=== PATIENT | male | born 1955 | race Caucasian/White ===

== ENCOUNTER 2016-11-05 15:33 | Emergency (ER) | payer BC ==
[~2016-11-05] VITALS: Ht 172.7 cm; Wt 81.8 kg
[2016-11-05] MEDS ORDERED: ADV250INH (15:49)
[2016-11-05] MEDS ORDERED: ATOR1TAB19 (15:49)
[2016-11-05] MEDS ORDERED: ASPI81TA85 PO (15:49)
[2016-11-05] MEDS ORDERED: VITA100067 PO (15:49)
[2016-11-05] MEDS ORDERED: IBUP-1114 PO (15:49)
[2016-11-05] MEDS ORDERED: LOSA25TA8 (15:49)
[2016-11-05] MEDS ORDERED: METO-346 (15:49)
[2016-11-05] MEDS ORDERED: NORCO, ANEXSIA 5/325MG TABLET (HYDROcodone/ACETAMINOPHEN) PO ONE (16:30)
[2016-11-05] MEDS ORDERED: CYCLOBENZAPRINE 10 MG TAB PO ONE (16:30)
[2016-11-05 17:37] VITALS: BP 116/65
[2016-11-05] MEDS ORDERED: NORCOTAB PO (17:38)
[2016-11-05] MEDS ORDERED: CYCL10TA PO (17:38)
[2016-11-05] MEDS ORDERED: METOCLOPRAMIDE INJ 10MG/2ML VIAL (J2765) IV ONE (17:45)
== END 2016-11-05 17:49 | disposition home or self-care (01) ==
LOC: M ED 15:33
DX: S33.5XXA Sprain of ligaments of lumbar spine, initial encounter (principal); I10 Essential (primary) hypertension; G89.29 Other chronic pain; M54.5 Low back pain; X58.XXXA Exposure to other specified factors, initial encounter; Y92.9 Unspecified place or not applicable; Y99.9 Unspecified external cause status; Y93.9 Activity, unspecified; Z87.891 Personal history of nicotine dependence; Z79.82 Long term (current) use of aspirin; Z79.899 Other long term (current) drug therapy

== ENCOUNTER → 2017-01-06 | Outpatient (CLI) | payer BC ==
[~2017-01-06] MED LIST: ADV250INH; ASPI81TA85 PO; ATOR1TAB19; CYCL10TA PO; IBUP-1114 PO; LOSA25TA8; METO-346; NORCOTAB PO; VITA100067 PO
[2017-01-06 08:40] LABS: ALBUMIN 3.9 GM/DL (3.2-5.2); ALKALINE PHOSPHATASE 44 U/L (45-117); ALT/SGPT 50 U/L (12-78); ANION GAP 7 MEQ/L (8-16); AST/SGOT 23 U/L (15-37); BILIRUBIN,TOTAL 0.7 MG/DL (0.2-1.0); BLOOD UREA NITROGEN 23 MG/DL (7-18); CALCIUM LEVEL 8.7 MG/DL (8.8-10.2); CARBON DIOXIDE LEVEL 28 MEQ/L (21-32); CHLORIDE LEVEL 110 MEQ/L (98-107); CHOLESTEROL LEVEL 145 MG/DL (<200); CREATININE FOR GFR 0.95 MG/DL (0.70-1.30); GLOMERULAR FILTRATION RATE > 60.0 (>49); GLUCOSE, FASTING 95 MG/DL (80-110); POTASSIUM SERUM 4.5 MEQ/L (3.5-5.1); SODIUM LEVEL 145 MEQ/L (136-145); TOTAL PROTEIN 6.9 GM/DL (6.4-8.2); TRIGLYCERIDES LEVEL 105 MG/DL (<150)
== END ==
LOC: M LAB 07:08
PROVIDERS: ATTEND Physician Assistant
DX: I10 Essential (primary) hypertension (principal)

== ENCOUNTER → 2017-07-10 | Outpatient (CLI) | payer BC ==
[2017-07-10 11:29] LABS: ANION GAP 6 MEQ/L (8-16); BLOOD UREA NITROGEN 28 MG/DL (7-18); CALCIUM LEVEL 9.2 MG/DL (8.8-10.2); CARBON DIOXIDE LEVEL 29 MEQ/L (21-32); CHLORIDE LEVEL 108 MEQ/L (98-107); CREATININE FOR GFR 0.93 MG/DL (0.70-1.30); GLOMERULAR FILTRATION RATE > 60.0 (>49); GLUCOSE, FASTING 102 MG/DL (70-100); POTASSIUM SERUM 4.1 MEQ/L (3.5-5.1); SODIUM LEVEL 143 MEQ/L (136-145)
== END ==
LOC: M LAB 10:54
DX: I10 Essential (primary) hypertension (principal)

== ENCOUNTER → 2018-07-09 | Outpatient (CLI) | payer BC ==
[~2018-07-09] MED LIST changes: +LOSA25TA14; -LOSA25TA8
[2018-07-09 11:59] LABS: HEMOGLOBIN A1c 5.8 %
[2018-07-09 12:18] LABS: BLOOD UREA NITROGEN 14 MG/DL (7-18); CARBON DIOXIDE LEVEL 27 MEQ/L (21-32); CHLORIDE LEVEL 107 MEQ/L (98-107); CHOLESTEROL LEVEL 144 MG/DL (<200); CHOLESTEROL RISK RATIO 2.322 (<5); GLOMERULAR FILTRATION RATE > 60.0 (>49); GLUCOSE, FASTING 87 MG/DL (70-100); HDL CHOLESTEROL 62 MG/DL (>40); LDL CHOLESTEROL 54 MG/DL (<100); NON-HDL-C 82 MG/DL; POTASSIUM SERUM 4.5 MEQ/L (3.5-5.1); SODIUM LEVEL 140 MEQ/L (136-145); TRIGLYCERIDES LEVEL 139 MG/DL (<150)
== END ==
LOC: M LAB 11:09
PROVIDERS: ATTEND Family Medicine
DX: Z13.1 Encounter for screening for diabetes mellitus (principal); I10 Essential (primary) hypertension

== ENCOUNTER → 2018-08-15 | Outpatient (CLI) | payer BC ==
[~2018-08-15] MED LIST changes: +HYDR-3715 PO; -NORCOTAB PO
== END ==
LOC: M LAB 16:41
PROVIDERS: ATTEND Family Medicine
DX: Z12.5 Encounter for screening for malignant neoplasm of prostate (principal)
CPT/HCPCS: 36415; G0103

== ENCOUNTER → 2019-07-24 | Outpatient (REF) | payer BC ==
[2019-07-24 11:03] LABS: ALBUMIN 4.1 GM/DL (3.2-5.2); ALT/SGPT 45 U/L (12-78); BILIRUBIN,TOTAL 0.4 MG/DL (0.2-1.0); BLOOD UREA NITROGEN 24 MG/DL (7-18); CALCIUM LEVEL 9.1 MG/DL (8.8-10.2); CARBON DIOXIDE LEVEL 24 MEQ/L (21-32); CHLORIDE LEVEL 111 MEQ/L (98-107); CHOLESTEROL LEVEL 137 MG/DL (<200); CHOLESTEROL RISK RATIO 2.362 (<5); CREATININE FOR GFR 1.11 MG/DL (0.70-1.30); GLOMERULAR FILTRATION RATE > 60.0 (>49); GLUCOSE, FASTING 95 MG/DL (70-100); HDL CHOLESTEROL 58 MG/DL (>40); LDL CHOLESTEROL 65 MG/DL (<100); NON-HDL-C 79 MG/DL; POTASSIUM SERUM 4.1 MEQ/L (3.5-5.1); PROSTATIC SPECIFIC AG MONITOR 2.63 NG/ML (< 4.00); SODIUM LEVEL 143 MEQ/L (136-145); TOTAL PROTEIN 7.1 GM/DL (6.4-8.2); TRIGLYCERIDES LEVEL 71 MG/DL (<150)
[2019-07-24 11:06] LABS: HEMOGLOBIN A1c 6.1 %
== END ==
LOC: M SFHCPLAZ 08:07
PROVIDERS: ATTEND Physician Assistant
DX: I10 Essential (primary) hypertension (principal); Z12.5 Encounter for screening for malignant neoplasm of prostate; R73.03 Prediabetes; Z13.29 Encounter for screening for other suspected endocrine disorder; E78.5 Hyperlipidemia, unspecified

== ENCOUNTER → 2020-04-29 | Outpatient (CLI) | payer SELFPAY ==
[~2020-04-29] MED LIST changes: -ASPI81TA85 PO; +ASPI81TA86 PO; +CYCL-707 PO; -CYCL10TA PO
== END ==
LOC: M LABSMTC 10:20
PROVIDERS: ATTEND Pediatrics
DX: Z20.822 Contact with and (suspected) exposure to COVID-19 (principal)

== ENCOUNTER → 2020-05-07 | Outpatient (CLI) | payer BC | LOC: M LABSMTC 13:06 | PROVIDERS: ATTEND Family Medicine | DX: Z20.822 Contact with and (suspected) exposure to COVID-19 (principal) ==

== ENCOUNTER → 2020-06-29 | Outpatient (CLI) | payer BC ==
[2020-06-29 09:50] LABS: HEMATOCRIT 42.5 % (42.0-52.0); HEMOGLOBIN 13.3 g/dl (13.5-17.5); MEAN CORPUSCULAR HEMOGLOBIN 29.2 pg (27.0-33.0); MEAN CORPUSCULAR HGB CONC 31.3 g/dl (32.0-36.5); MEAN CORPUSCULAR VOLUME 93.4 fl (80.0-96.0); PLATELET COUNT, AUTOMATED 179 10^3/uL (150-450); RED BLOOD COUNT 4.55 10^6/uL (4.30-6.10); WHITE BLOOD COUNT 5.7 10^3/uL (4.0-10.0)
[2020-06-29 10:18] LABS: HEMOGLOBIN A1c 5.5 %
[2020-06-29 10:22] LABS: MALB URINE SIEMENS 17.5 MG/L
[2020-06-29 10:36] LABS: ALT/SGPT 51 U/L (12-78); BILIRUBIN,TOTAL 0.4 MG/DL (0.2-1.0); BLOOD UREA NITROGEN 18 MG/DL (7-18); CALCIUM LEVEL 9.1 MG/DL (8.8-10.2); CARBON DIOXIDE LEVEL 27 MEQ/L (21-32); CHLORIDE LEVEL 110 MEQ/L (98-107); CHOLESTEROL LEVEL 129 MG/DL (<200); CHOLESTEROL RISK RATIO 1.842 (<5); CREATININE FOR GFR 0.99 MG/DL (0.70-1.30); GLOMERULAR FILTRATION RATE > 60.0 (>49); GLUCOSE, FASTING 100 MG/DL (70-100); HDL CHOLESTEROL 70 MG/DL (>40); LDL CHOLESTEROL 49 MG/DL (<100); NON-HDL-C 59 MG/DL; POTASSIUM SERUM 4.8 MEQ/L (3.5-5.1); SODIUM LEVEL 141 MEQ/L (136-145); TOTAL PROTEIN 6.8 GM/DL (6.4-8.2); TRIGLYCERIDES LEVEL 52 MG/DL (<150)
== END ==
LOC: M LAB 08:36
PROVIDERS: ATTEND Physician Assistant
DX: E78.5 Hyperlipidemia, unspecified (principal); I10 Essential (primary) hypertension; J45.40 Moderate persistent asthma, uncomplicated; R73.03 Prediabetes; Z12.5 Encounter for screening for malignant neoplasm of prostate
CPT/HCPCS: 36415; 80053; 80061; 82043; 83036; 85027; G0103

== ENCOUNTER → 2021-02-03 | Outpatient (CLI) | payer BC ==
[~2021-02-03] MED LIST changes: +ASPI81TA26 PO; +D31000TA2 PO; +LOSA100T50 PO
== END ==
LOC: M LABSMTC 10:01
PROVIDERS: ATTEND Anesthesiology
DX: Z11.52 Encounter for screening for COVID-19 (principal); Z20.822 Contact with and (suspected) exposure to COVID-19

== ENCOUNTER 2021-02-07 09:08 | Day surgery (SDC) | payer BC ==
[~2021-02-07] VITALS: Ht 172.7 cm; Wt 77.5 kg
[~2021-02-07 09:08] MED LIST changes: +NS 1,000 ML IV ONE
--- OUTSIDE RECORDS SUMMARY | 2021-02-07 09:11 | CCD ---
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 Active confirmed 9560831 Problem Ascending aortic aneurysm I71.2 Active confirmed 341231032 Problem Gastroesophageal reflux disease without esophagitis K21.9 Active confirmed 120917434 Problem Dyslipidemia E78.5 Active confirmed 4983449 07 Problem Irritable bowel syndrome with diarrhea K58.0 A ctive confirmed 939985015 Problem BPH w urinary obs/LUTS N40.1 Active confirmed 82927917895692 Problem Essential hypertension I10 Active confirmed 32902442 Problem Prostate cancer screening Z12.5 Active confirmed 754201421 Problem Chronic allergic rhinitis J30.9 Active confirmed 85365568 Problem Moderate persistent asthma without complication J4 5.40 Active confirmed 801066946 ALLERGIES Allergen (clinical drug ingredient) Drug/Non Drug Allergy do cumented on EMR Reaction Allergy Type Onset Date Status lisinopril Lisinopril([facility] Code:[address]-64) Cough Drug Allergy Active ENCOUNTERS from 1955 to 2020-12-20 Encounter Location Date Provider Diagnosis [facility] [place] [address] [facility] [facility] [phone] [place] [address] Dec, Elena Anderson IMMUNIZATIONS Vaccine Route Administration Date Status Influenza 6mo & up Fluzone Unknown Jan 20, 2016 Admin istered Influenza 6mo & up Fluzone Unknown October 16, 2014 Refus ed Influenza 6mo & up Fluzone IM Intramuscular Feb 28, 2010 Admi nistered SOCIAL HISTORY Tobacco Use: Social History Observation Description Date Details (start date - stop date) Former Smoker Sex Assigned At : Social History Observation Description Sex Assigned At Unknown Education: Question Answer Notes Level of Education: Finished High School Audit Question Answer Notes Total Score: 4 Interpretation: Alcohol Education Alevism: Question Answer Notes Alevism 21 Gnosticism No restoration beliefs that would impact health care. Sexual Hx: Question Answer Notes Had sex in the last 12 months (vaginal, oral, or anal)? Yes Have you ever had an STD? Yes Prevention Strategies discussed: Other with Women only Use protection? No Other? Yes GC? Yes Drug and Alcohol Question Answer Notes Total Score: 2 Interpretation: Low level Alcohol Screening: Question Answer Notes Did you have a drink containing alcohol in the past year? Ye s Points 5 Interpretation Positive How often did you have six or more drinks on one occas ion in the past year? Less than monthly (1 point) How many drinks did you have on a typica l day when you were drinking in the past year? 3 or 4 (1 point) How often did you have a drink containing alcohol in t he past year? Two to three times per week (3 points) Tobacco Use: Question Answer Notes Are you a: former smoker How long has it been since you last smoked? > 10 years REASON FOR REFERRAL No Information VITAL SIGNS No information MEDICATIONS Medication SIG (Take, Route, Frequency, Duration) Notes Start Da te End Date Status Aspir-81 81 MG 1 tablet Orally Once a day Active Albuterol Sulfate HFA 108 (90 Base) MCG/ACT 2 puffs In halation Q4 hours as needed Active DuoNeb 0.5-2.5 (3) MG/3ML 3 ml Inhalation four times a day as needed Active Claritin 10 MG 1 tablet Orally as needed Not-Taking Fluticasone Propionate 50 MCG/ACT 1 spray in each nost ril Nasally Once a day for 60 Active Advair Diskus 250-50 MCG/DOSE 1 Inhalation every 12 hrs for 90 day(s) Active Tylenol with Codeine #3 300-30 MG 1 tablet as needed O rally Three times daily as needed for cough for 7 day(s) Jul, No t-Taking Systane 0.4-0.3 % 1 drop into both eyes Ophthalmic 4 times a day as needed Active Vitamin D 2000 UNIT 1 tablet Orally twice a day Active Vitamin B-1 100 MG 1 tablet Orally Once a day Active Cozaar 100 MG 1 tablet Orally Once a day Feb, Active Lipitor 10 MG 1 tablet Orally before bedtime for 90 Active PROCEDURES No Information RESULTS No Results REASON FOR VISIT Transfer MEDICAL (GENERAL) HISTORY Type Description Date Medical History asthma Medical History Esophageal reflux Medical History irritable bowel syndrome Medical History insomnia Medical History diverticulosis Medical History Hiatal hernia Medical History Colonoscopy 05/2010 Medical History EGD 05/2009 Medical History Cannabis use "years ago" Medical History Undiagnosed cardiac murmurs Medical History Ureteral Stone Medical History E[facility] 01/03/2013 [facility]: "Mild LV hypertrophy w/preserved LV systolic function; EF 60-65%. Bicuspid aortic valve resulting in mild stenosis & moderate insufficiency. Dilated ascending aorta[maximum jenniffer. 4.3 cm]. Unable to estimate CVP. Proable normal pulmonary artery pressure." Per Dr. Pelaez. ECHO 06/2016: likely bicuspid aortic valve with trivial stenosis and moderate insufficiency. Overall no significant change compared to 06/2015; 06/2019- no change from 2019, EF 55-65% Medical History History of elevated prostate specific an tigen (PSA) Medical History Elevated PSA Medical History Diaphragmatic hernia without mention of obstruction or gangrene Medical History Aortic valve disorders Medical History Mitral valve disorders Medical History Tricuspid valve disorders, specified as nonrheumatic Surgical History EGD (Dr Bailon) 05/2010 Surgical History colonoscopy (Dr Bailon) 05/2010 Surgical History Prostate Biopsy 2014 Hospitalization History heart syncope 03/04 Goals Section No Information Health Concerns No Information MEDICAL EQUIPMENT No Information MENTAL STATUS No Information FUNCTIONAL STATUS No Information ASSESSMENTS No Information PLAN OF TREATMENT Medication Medication Name Sig Start Date Stop Date Lipitor 10 MG 1 tablet Orally before bedtime for 90 Next Appt Details Provider Name:Elena Anderson, 2021-01-20 09:00:00 AM, [address] [facility], , [place], [address], Insurance Providers Payer Name Payer Address Payer Phone Insured Name Patient Relati onship to Insured Coverage Start Date Coverage End Date [place] [address] [address] [place] [address] [phone] LIMA GUERRA self
--- OUTSIDE RECORDS SUMMARY | 2021-02-07 09:11 | CCD | Continuity of Care Document ---
Author Author Travis BERG ANP Organization Unknown Address [address] [facility] [address] [place] [address] Phone [phone] Care Team Providers Care Technical Maintenance Specialist Name Role Phone Ramon Dolly Jennifer Boucher AUTM [phone] Problems Active Problems Provider Date Mild persistent asthma Leonid Zamorano MD Onset: 01/14/2015 Dyspnea Leonid Zamorano MD Onset: 12/20/2012 Allergic rhinitis Leonid Zamorano MD Onset: 06/21/2012 Overweight Leonid Zamorano MD Onset: 12/15/2011 Allergic asthma without status asthmaticus Leonid Zamorano MD Onset: 12/15/2011 Asthma without status asthmaticus Stefani Berg, A.N.P. Onset: 05/28/2011 Social History Type Date Description Comments Sex Unknown Smokeless Tobacco Never Used Smokeless Tobacco ETOH Use 1 A Day Tobacco Use Reviewed: 05/27/20 Patient has never smoked Recreational Drug Use Denies Drug Use Smoking Status Reviewed: 05/27/20 Patient has never smoked Allergies, Adverse Reactions, Alerts Active Allergies Reaction Severity Comments Date Lisinopril cough 11/22/2019 Inactive Allergies NKDA 05/28/2011 Medications Active Medications SIG Qnty Indications Ordering Provide r Date Sutab 4415-717-241mt Tablets take tablets as directed per doctor for bowel prep. 1kit Z12.11 Yared whitfield MD 10/29/[address] take 4 tabs by mouth prior to procedure per instructions. 4tabs Z12.11 Yared Bailon MD 10/29/2020 Albuterol Sulfate HFA 108(90Base) mcg/Act Aerosol inhale two puffs by mouth four times a day as needed 18units DANIA Ragsdale 02/05/2020 Fluticasone Propionate/Salmeterol Diskus 250-50mcg/Dose Aerosol inhale one puff by mouth twice a day 180unandrei DANIA Ragsdale 11/02/2019 Ipratropium [place]/Albuterol Sulfate 0.5-2.5(3)mg/3ML Solution use 1 vial via nebulizer four times a day as needed 360unandrei DANIA Ragsdale 07/27/2018 Atorvastatin Calcium 10mg Tablets 1 tab by mouth every day Unknown Fluticasone Propionate 50mcg/Act Suspension 2 sprays to each nostril daily Unknown Aspir-[address] 1 tab by mouth every day Unknown Cozaar 100mg Tablets 1 by mouth every day Unknown Vitamin D 50mcg (1999 [place]) Tablets 1 by mouth bid Unknown B-100 Complex Tablets Daily Unknown Immunizations CPT Code Status Date Vaccine Lot # [id number] Given 02/28/2020 Afluria, Quadrivalent, 0.5ml , [facility]# [id number] [id number] Given 01/25/2014 Influenza Virus Split 3 Yrs And Above For Intramuscular Use Q2036 Given 02/17/2013 Influenza Vaccine 3 Years Of Age Or Older (Flulaval) Q2036 Given 02/03/2012 Influenza Vaccine 3 Years Of Age Or Older (Flulaval) Q2036 Given 02/18/2011 Influenza Vaccine 3 Years Of Age Or Older (Flulaval) Vital Signs Date Vital Result Comment 11/25/2020 3:33pm BP Systolic 118 mmHg BP Diastolic 60 mmHg Heart Rate 80 /min O2 % BldC Oximetry 97 % Height 68 inches 5'8" Weight 174.00 lb BMI (Body Mass Index) 26.5 kg/m2 [place] Body Weight 154 lb Weight 78.926 kg BSA (Body Surface Area) 1.93 m2 10/29/2020 1:51pm BP Systolic 130 mmHg BP Diastolic 80 mmHg Height 68 inches 5'8" Weight 174.00 lb BMI (Body Mass Index) 26.5 kg/m2 [place] Body Weight 154 lb Weight 78.926 kg BSA (Body Surface Area) 1.93 m2 Results Test Acquired Date Facility Test Result H/L Range Note [facility] 11/25/2020 [employer] PD[facility] SEE IMAGE FVC-Pred 4.27 L FVC-Pre 5.07 L FVC-%Pred-Pre 118 L FVC-LLN 3.39 L Fev1-Pred 3.19 L Fev1-Pre 3.65 L Fev1-%Pred-Pre 114 L Fev1-LLN 2.44 L Fev6-Pred 4.05 L Fev6-Pre 4.93 L Fev6-%Pred-Pre 121 L Fev6-LLN 3.19 L Hlh0iqm-Yfga 75 % Cdc5jfh-Gso 72 % Bfy1hrk-%Pred-Pre 96 % Ghh6eqa-JQH 65 % Vlf1uwz-Vjgv 95 % Mbo6ioc-Tso 97 % Aei0fri-%Pred-Pre 102 % FEFMax-Pred 8.38 L/E/sec FEFMax-Pre 8.47 L/E/sec FEFMax-%Pred-Pre 101 L/E/sec FEFMax-LLN 6.19 L/E/sec Xvz5982-Ydxs 2.54 L/E/sec Igo2976-Ufc 2.52 L/E/sec Ufh9323-%Pred-Pre 99 L/E/sec Gtm2889-JBN 1.03 L/E/sec ExpTime-Pre 8.05 sec Lgi8myc5-Rmgg 78 % Cam4xbx1-Sen 74 % Mok5xvi4-%Pred-Pre 94 % Urc8nsa1-OCT 69 % Procedures Date Code Description Status 11/25/2020 44959 Office/Outpatient Established Lo w MDM 20-29 Min Completed 11/25/2020 62282 Spirometry Completed Medical Devices Description No Information Available Encounters Type Date Location Provider Dx Diagnosis Office Visit 11/25/2020 3:30p [facility] Pulmonary/Thoracic DANIA Espino J45.30 Mild persistent asthma, uncomplicated Assessments Date Code Description Provider 11/25/2020 J45.30 Mild persistent asthma, uncompli cated DANIA Ragsdale 10/29/2020 Z12.11 Encounter for screening for jj gnant neoplasm of colon Rupal Garcia, RPA-C Plan of Treatment Future Appointment(s):* 05/29/2021 9:30 am - DANIA Ragsdale at [facility] Pulmonary/Thoracic * 02/07/2021 2:00 am - Yared Bailon MD at [facility] Gastroenterology Practice 11/25/2020 - Stefani Berg, ANP* J45.30 Mild persistent asthma, uncomplicated * * New Labs:* [facility], Scheduled: 05/29/21 * Follow up:* 1. Follow up visit in 6 months with fvl/spirometry. Functional Status Description No Information Available Mental Status Description No Information Available Referrals Refer to Reason for Referral Status Appt Date Yared Bailon M.D. COLO SCREENING Scheduled 10/29/2020 [facility], Gastroenterology [address] [place] [address], [place] [address] [phone]
--- OUTSIDE RECORDS SUMMARY | 2021-02-07 09:12 | CCD ---
Author Author [facility] Organization [facility] Address Unknown Phone Unavailable Care Team Providers Care Flight Operations Dispatch Clerk Name Role Phone Toya, L Stefani LION TAMER Unavailable Unavailable Toya, L Stefani LION TAMER Unavailable Unavailable Toya, L Stefani LION TAMER Unavailable Unavailable Toya, L Stefani LION TAMER Unavailable Unavailable Toya, L Stefani LION TAMER Unavailable Unavailable Toya, L Stefani LION TAMER Unavailable Unavailable Toya, L Stefani LION TAMER Unavailable Unavailable Toya, L Stefani LION TAMER Unavailable Unavailable Toya, L Stefani LION TAMER Unavailable Unavailable Toya, L Stefani LION TAMER Unavailable Unavailable Toya, L Stefani LION TAMER Unavailable Unavailable Toya, L Stefani LION TAMER Unavailable Unavailable Toya, L Stefani LION TAMER Unavailable Unavailable Toya, L Stefani LION TAMER Unavailable Unavailable Toya, L Stefani LION TAMER Unavailable Unavailable Toya, L Stefani LION TAMER Unavailable Unavailable Toya, L Stefani LION TAMER Unavailable Unavailable Toya, L Stefani LION TAMER Unavailable Unavailable Toya, L Stefani LION TAMER Unavailable Unavailable Toya, L Stefani LION TAMER Unavailable Unavailable Toya, L Stefani LION TAMER Unavailable Unavailable Toya, L Stefani LION TAMER Unavailable Unavailable Toya, L Stefani LION TAMER Unavailable Unavailable Toya, L Stefani LION TAMER Unavailable Unavailable Toya, L Stefani LION TAMER Unavailable Unavailable LancasterEugenie PA Unavailable Unavailable Eugenie Lancaster PA Unavailable Unavailable Eugenie Lancaster PA Unavailable Unavailable LancasterEugenie hawley PA Unavailable Unavailable Lancaster, L Anita PA Unavailable Unavailable Lancaster, L Anita PA Unavailable Unavailable Lancaster, L Anita PA Unavailable Unavailable Lancaster, L Anita PA Unavailable Unavailable Lancaster, L Anita PA Unavailable Unavailable Lancaster, L Anita PA Unavailable Unavailable Lancaster, L Anita PA Unavailable Unavailable Lancaster, L Anita PA Unavailable Unavailable Lancaster, L Anita PA Unavailable Unavailable Lancaster, L Anita PA Unavailable Unavailable Lancaster, L Anita PA Unavailable Unavailable Lancaster, L Anita PA Unavailable Unavailable Lancaster, L Anita PA Unavailable Unavailable Lancaster, L Anita PA Unavailable Unavailable Lancaster, L Anita PA Unavailable Unavailable Lancaster, L Anita PA Unavailable Unavailable Lancaster, L Anita PA Unavailable Unavailable Lancaster, L Anita PA Unavailable Unavailable Lancaster, L Anita PA Unavailable Unavailable Lancaster, L Anita PA Unavailable Unavailable Lancaster, L Anita PA Unavailable Unavailable Lancaster, L Anita PA Unavailable Unavailable Lancaster, L Anita PA Unavailable Unavailable Lancaster, L Anita PA Unavailable Unavailable Lancaster, L Anita PA Unavailable Unavailable Lancaster, L Anita PA Unavailable Unavailable Lancaster, L Anita PA Unavailable Unavailable Lancaster, L Anita PA Unavailable Unavailable Lancaster, L Anita PA Unavailable Unavailable Lancaster, L Anita PA Unavailable Unavailable Lancaster, L Anita PA Unavailable Unavailable Lancaster, L Anita PA Unavailable Unavailable Lancaster, L Anita PA Unavailable Unavailable Lancaster, L Anita PA Unavailable Unavailable Lancaster, L Anita PA Unavailable Unavailable Re-disclosure Warning The records that you are about to access may contain information from federally-assisted alcohol or drug abuse programs. If such information is present, then the following federally mandated warning applies: This information has been disclosed to you from records protected by federal confidentiality rules (42 CFR part 2). The federal rules prohibit you from making any further disclosure of this information unless further disclosure is expressly permitted by the written consent of the person to whom it pertains or as otherwise permitted by 42 CFR part 2. A general authorization for the release of medical or other information is NOT sufficient for this purpose. The Federal rules restrict any use of the information to criminally investigate or prosecute any alcohol or drug abuse patient.The records that you are about to access may contain highly sensitive health information, the redisclosure of which is protected by Article 27-F of the [facility] Public Health law. If you continue you may have access to information: Regarding HIV / AIDS; Provided by facilities licensed or operated by the [facility] Office of Mental Health; or Provided by the [facility] Office for People With Developmental Disabilities. If such information is present, then the following [facility] mandated warning applies: This information has been disclosed to you from confidential records which are protected by state law. State law prohibits you from making any further disclosure of this information without the specific written consent of the person to whom it pertains, or as otherwise permitted by law. Any unauthorized further disclosure in violation of state law may result in a fine or mcfp sentence or both. A general authorization for the release of medical or other information is NOT sufficient authorization for further disc losure. Family History Family Member Name Family Member Gender Family Member Status Date o f Status Description Data Source(s) Unknown Unknown Problem [facility] ([facility] ) lymphoma father Unknown Male Problem [facility] ([facility] () Encounters Encounter Providers Location Date Indications Data Source(s ) [place] [address] [facility] [address] 12/20/2020 12:00:00 AM EDT eCW1 ([facility]) Outpatient Attender: Stefani Uriostegui/Maria Isabel/Zachary/Reincyndee 11/25/2020 03:30:00 PM EDT [facility] ([facility] ) Outpatient Referrer: Anita DE OLIVEIRA 02:32:23 PM EDT [facility] [address] [facility] [facility] [address] 07/22/2020 12:00:00 AM EDT eCW1 ([facility]) Outpatient Attender: Anita FORBES 07/2020 07:47:43 AM EST - 06/20/2020 08:40:05 AM EST [facility] Outpatient Attender: Stefani Grant/Zachary/Reindl 05/27/2020 02:30:00 PM EST [facility] ([facility]) [place] [address] [facility] [facility] [address] 05/16/2020 12:00:00 AM EST eCW1 ([facility]) [place] [address] [facility] [facility] [address] 02/07/2020 12:00:00 AM EDT eCW1 ([facility]) Out[place] [address] [facility] [facility] [address] 01/22/2020 12:00:00 AM EDT eCW1 ([facility]) Immunizations Vaccine Date Status Description Data Source(s) New in 2011. IIV4 02/28/2020 02:15:00 PM EST completed MED[facility] ([facility]) Medications Medication Brand Name Start Date Product Form Dose Route Admi nistrative Instructions Pharmacy Instructions Status Indications Reaction Description Data Source(s) 1.479-0.188- 0.225 gram 01/28/2021 12:00:00 AM EDT tablet 24 TAKE DIRECTED PER DOCTOR BOWEL PREP INSTRUCTIONS TAKE DIRECTED PER DOCTOR BOWEL PREP INSTRUCTIONS SOLD: 01/28/2021 [facility] 100 mg 01/04/2021 12:00:00 AM EDT tablet 90 TAKE ONE TABLET BY MOUTH EVERY DAY TAKE ONE TABLET BY MOUTH EVERY DAY SOLD: 01/06/2021 [facility] Albuterol 0.833 MG/ML / Ipratropium Brom anuja 0.167 MG/ML Inhalation Solution 0.5 mg-3 mg(2.5 mg base)/3 mL IPRATROPIUM/ALBUTEROL SULFATE 11/26/2020 12:00:00 AM EDT solution for nebulization 360 INHALE THE CONTENTS OF ONE VIAL VIA NEBULIZER FOUR TIMES A DAY NEEDED INHALE THE CONTENTS OF ONE VIAL VIA NEBULIZER FOUR TIMES A DAY NEEDED SOLD: 12/04/2020 [facility] 90 mcg/actuation 11/26/2020 12:00:00 AM EDT HFA aerosol inha ler 6 INHALE TWO PUFFS BY MOUTH FOUR TIMES A DAY NEEDED INHALE TWO PUFFS BY MOUTH FOUR TIMES A DAY NEEDED SOLD: 12/04/2020 [facility] 250-50 mcg/dose 11/04/2020 12:00:00 AM EDT blister with surendra ce 180 INHALE ONE PUFF BY MOUTH TWICE A DAY INHALE ONE PUFF BY MOUTH TWICE A DAY SOLD: 11/08/2020 [facility] atorvastatin 10 MG Oral Tablet ATORVASTATIN CALCIUM 11/04/2020 1 2:00:00 AM EDT tablet 90 TAKE ONE TABLET BY MOUTH EVERY D AY BEFORE BEDTIME TAKE ONE TABLET BY MOUTH EVERY DAY BEFORE BEDTIME SOLD: 11/08/2020 [facility] Bisacodyl 5 MG Delayed Release Oral Tablet [Dulcolax] Dulcol ax 10/29/2020 12:00:00 AM EDT ORAL active M EDENT ([facility], ) Sutab Sutab 10/29/2020 12:00:00 AM EDT active MEDENT ([facility], ) atorvastatin 10 MG Oral Tablet ATORVASTATIN CALCIUM 05/16/2020 1 2:00:00 AM EST tablet 90 TAKE ONE TABLET BY MOUTH EVERY D AY AT BEDTIME TAKE ONE TABLET BY MOUTH EVERY DAY AT BEDTIME SOLD: 05/16/2020 [facility] atorvastatin 10 MG Oral Tablet ATORVASTATIN CALCIUM 05/16/2020 1 2:00:00 AM EST tablet 90 TAKE ONE TABLET BY MOUTH EVERY D AY AT BEDTIME TAKE ONE TABLET BY MOUTH EVERY DAY AT BEDTIME SOLD: 08/01/2020 [facility] 100 mg 03/27/2020 12:00:00 AM EST tablet 90 TAKE ONE TABLET BY MOUTH EVERY DAY TAKE ONE TABLET BY MOUTH EVERY DAY SOLD: 03/30/2020 [facility] Losartan Potassium 100 MG Oral Tablet losartan (COZAAR ) 100 MG tablet losartan (COZAAR) 100 MG tablet 03/27/2020 12:00:00 AM EST active TAKE ONE TABLET BY MOUTH EVERY DAY [facility] 100 mg 03/27/2020 12:00:00 AM EST tablet 90 TAKE ONE TABLET BY MOUTH EVERY DAY TAKE ONE TABLET BY MOUTH EVERY DAY SOLD: 09/24/2020 [facility] 100 mg 03/27/2020 12:00:00 AM EST tablet 90 TAKE ONE TABLET BY MOUTH EVERY DAY TAKE ONE TABLET BY MOUTH EVERY DAY SOLD: 06/26/2020 [facility] 50 mcg/actuation 02/08/2020 12:00:00 AM EDT spray,suspension 16 SPRAY 1 SPRAY IN EACH NOSTRIL ONCE A DAY SPRAY 1 SPRAY IN EACH NOSTRIL ONCE A DAY SOLD: 02/08/2020 [facility] 0.5 mg-3 mg(2.5 mg base)/3 mL 02/05/2020 12:00:0 0 AM EDT solution for nebulization 360 USE 1 VIAL VIA NEBULIZER FOUR TI MES A DAY NEEDED USE 1 VIAL VIA NEBULIZER FOUR TIMES A DAY NEEDED SOLD: 02/08/2020 [facility] 90 mcg/actuation 02/05/2020 12:00:00 AM EDT HFA aerosol inha ler 18 INHALE TWO PUFFS BY MOUTH FOUR TIMES A DAY NEEDED INHALE TWO PUFFS BY MOUTH FOUR TIMES A DAY NEEDED SOLD: 02/08/2020 [facility] 60 ACTUAT Albuterol 0.09 MG/ACTUAT Metered Dose Inhaler Albu terol Sulfate HFA 02/05/2020 12:00:00 AM EDT ORAL active MED[facility] ([facility], ) 50 mcg/actuation 12/02/2019 12:00:00 AM EDT spray,suspension 16 SPRAY 1 SPRAY IN EACH NOSTRIL ONCE DAILY SPRAY 1 SPRAY IN EACH NOSTRIL ONCE DAILY SOLD: 05/10/2020 [facility] 50 mcg/actuation 12/02/2019 12:00:00 AM EDT spray,suspension 16 SPRAY 1 SPRAY IN EACH NOSTRIL ONCE DAILY SPRAY 1 SPRAY IN EACH NOSTRIL ONCE DAILY SOLD: 09/06/2020 [facility] atorvastatin 10 MG Oral Tablet ATORVASTATIN CALCIUM 11/09/2019 1 2:00:00 AM EDT tablet 90 TAKE 1 TABLET BY MOUTH BEFORE BE DTIME TAKE 1 TABLET BY MOUTH BEFORE BEDTIME SOLD: 02/08/2020 [facility] 250-50 mcg/dose 11/03/2019 12:00:00 AM EDT blister with surendra ce 180 INHALE ONE PUFF BY MOUTH TWICE A DAY INHALE ONE PUFF BY MOUTH TWICE A DAY SOLD: 08/01/2020 [facility] 250-50 mcg/dose 11/03/2019 12:00:00 AM EDT blister with surendra ce 180 INHALE ONE PUFF BY MOUTH TWICE A DAY INHALE ONE PUFF BY MOUTH TWICE A DAY SOLD: 05/10/2020 [facility] 250-50 mcg/dose 11/03/2019 12:00:00 AM EDT blister with surendra ce 180 INHALE ONE PUFF BY MOUTH TWICE A DAY INHALE ONE PUFF BY MOUTH TWICE A DAY SOLD: 02/08/2020 [facility] 100 mg 07/05/2019 12:00:00 AM EDT tablet 90 TAKE ONE TABLET BY MOUTH EVERY DAY TAKE ONE TABLET BY MOUTH EVERY DAY SOLD: 01/01/2020 [facility] Ascorbic Acid 500 MG Oral Tablet ascorbic acid (VITAMI N C) 500 MG tablet ascorbic acid (VITAMIN C) 500 MG tablet 500 mg Oral aborted Take 500 mg by mouth daily [facility] Insurance Providers Payer name Policy type / Coverage type Policy ID Covered constitution party ID Covered constitution party's relationship to agosto Policy Agosto Plan Information [facility] [id number] Self [id number] [facility] [id number] Self [id number] [facility] [id number] Self [id number] [facility] [id number] Self [id number] [employer] [id number] Mony [id number] [employer] [id number] Mony [id number] [employer] [id number] EXCELLUS BCBS [facility] [id number] SP [id number] EXCELLUS C [id number] Self [id number] [facility] Health Maintenance Organization (HMO) [id number] Self [id number] [facility] Health Maintenance Organization (HMO) [id number] Self [id number] [employer] [id number] SP [id number] [employer] FEDERAL [id number] SP [id number] [employer] FEDERAL [id number] SP [id number] [facility] [place] [employer] B [id number] S [id number] [facility] [place] [employer] [employer] [id number] SP [id number] [facility] FEDERAL EMPLOYEE PROGRAM [id number] SP [id number] [facility] FED[employer]AL EMPLOYEE PROGRAM [id number] SP [id number] [facility] FED[employer]AL EMPLOYEE PROGRAM [id number] SP [id number] SELF PAY ONLY [id number] ANSI-Commercial [id number] ANSI-Commercial [id number] ANSI-Commercial [id number] ANSI-Commercial [id number] ANSI-Commercial [id number] Problems, Conditions, and Diagnoses Code Display Name Description Problem Type Effective Dates Data Source(s) I71.2 Thoracic aortic aneurysm, without ruptur e Thoracic aortic aneurysm, without ruptur Diagnosis 06/20/2020 07:47:43 AM EST [facility] R07.9 Chest pain, unspecified Chest pain, unspecified Diagno sis 06/20/2020 07:47:43 AM EST [facility] E78.2 Mixed hyperlipidemia Mixed hyperlipidemia Diagnosis 06/20/2020 07:47:43 AM EST [facility] I35.1 Nonrheumatic aortic (valve) insufficienc y Nonrheumatic aortic (valve) insufficienc Diagnosis 06/20/2020 07:47:43 AM EST [facility] I10 Essential (primary) hypertension Essential (primary) h ypertension Diagnosis 06/20/2020 07:47:43 AM EST [facility] Surgeries/Procedures Procedure Description Date Indications Data Source(s) Spirometry 11/25/2020 12:00:00 AM EDT M EDENT ([facility], ) OFFICE OUTPATIENT VISIT 15 MINUTES 11/25/2020 12:00:00 AM EDT MEDENT ([facility], ) POCT AMB EKG <td>POCT AMB EKG</td><td>Rou ace</td><td>06/20/2020 8:23 AM EST</td><td> Essential hypertension</td><td> </td> 06/20/2020 01:23:00 PM EST Essential hypertension [facility] Essential hypertension Spirometry 05/27/2020 12:00:00 AM EST M EDENT ([facility], ) OFFICE OUTPATIENT VISIT 15 MINUTES 05/27/2020 12:00:00 AM EST MEDENT ([facility]) Results ID Date Data Source [id number] 11/25/2020 03:30:00 PM EDT MEDENT ([facility], ) Name Value Range Interpretation Code Description Data Eloise rce(s) Supporting Document(s) PDFReport Laboratory test result MEDENT ([facility], ) FVC-Pred 4.27 L MEDENT ([facility]) FVC-Pre 5.07 L MEDENT ([facility]) FVC-LLN 3.39 L MEDENT ([facility]) Fev1-Pred 3.19 L MEDENT ([facility]) FVC-%Pred-Pre 118 L MEDENT ([facility], ) Fev1-%Pred-Pre 114 L MEDENT ([facility]) Fev1-Pre 3.65 L MEDENT ([facility]) Fev1-LLN 2.44 L MEDENT ([facility]) Fev6-Pre 4.93 L MEDENT ([facility] ) Fev6-Pred 4.05 L MED[facility] ([facility]) Fev6-%Pred-Pre 121 L MEDENT ([facility]) Fev6-LLN 3.19 L MEDENT ([facility]) Tog0ifd-Ehxl 75 % MEDENT ([facility]) Dku2kpp-Tjv 72 % MED[facility] ([facility]) Uqi4nbt-%Pred-Pre 96 % MEDENT ([facility]) Har8jgl-LSO 65 % [facility] ([facility]) Bul8zdt-Gqz 97 % [facility] ([facility]) Vwa9wzs-Qkxq 95 % [facility] ([facility]) Jjv9xyf-%Pred-Pre 102 % MEDENT ([facility]) FEFMax-Pred 8.38 L/E/sec MEDENT ([facility]) FEFMax-LLN 6.19 L/E/sec MEDENT ([facility]) FEFMax-Pre 8.47 L/E/sec MED[facility] ([facility]) FEFMax-%Pred-Pre 101 L/E/sec MEDENT ([facility]) Hcm2813-Ebdy 2.54 L/E/sec MEDENT ([facility]) Iiw3232-Xys 2.52 L/E/sec MEDENT ([facility]) Njv5585-%Pred-Pre 99 L/E/sec MED[facility] ([facility]) ExpTime-Pre 8.05 sec MEDENT ([facility]) Ijq9mqg6-Cyio 78 % MED[facility] ([facility]) Urd7772-NQL 1.03 L/E/sec MEDENT ([facility]) Sjy3jom2-%Pred-Pre 94 % MED[facility] ([facility]) Tln2qsz3-Lkb 74 % [facility] ([facility]) Kce2tcc6-BTV 69 % MEDENT ([facility], ) ID Date Data Source [id number] 08/12/2020 07:23:31 PM EDT [facility] Name Value Range Interpretation Code Description Data Eloise rce(s) Supporting Document(s) &PDF [facility] [id number]FAEgN0IyqUzbZZtPByBFDQbRETuMSoXnCQGb yKE [file] AgICAgICAgICAgICAgICAgICAgICAgICAgICAgICAg UZLgESNpMQLtTQKeYJ8UVJBxZUKuAIYbREZwZCIiVMDrQKFwTFReLFUtUZEeDSYeWXKtDZIzBJIoOBUg YZAfYBJiZBVeVBQgAELfRHVxYUKkSYSoFYNmKPQtDOEbTVXqPYGzYESzPCDgSNUhQGYuZADeHR7ETBHb ICAgICAgICAgICAgICAgICAgICAgICAgICAgICAgIC AgICAgICAgICAgICAgICAgICAgICAgICAgICAgICAgICAgICAgICAgICAgICAgICAgICAgICAgICAgIC AhCDNvMO0ZPVDxAQNsQFMxLLVrRISbCORyIRIqKGNwZYRvYLTeTPUoFVLtMCCrPVNePXQhRHBlMNRiOQ AgICAgICAgICAgICAgICAgICAgICAgICAgICAgICAg RLVxXEIxMSXaUCTuAAVfUY6BBFXkYWVwTWWkHERdFRJhMWJbRHDqAUCaBXUiXLDaJEMhPIPsPSWbDIZf ZYHfKGVrLBZyQJGrDKVzYRDfDCDjPUIgPDMjYOXgKMMiTQErBSZpLWJlGRUdYUKyULGrQHVsATBeDE3D ICAgICAgICAgICAgICAgICAgICAgICAgICAgICAgIC AgICAgICAgICAgICAgICAgICAgICAgICAgICAgICAgICAgICAgICAgICAgICAgICAgICAgICAgICAgIC WwORBiHWLeKX0VCHOzOWZrHDSzCPUrRNLfTVVrAXIzSPZoYOPyXQKcVQLcBGCsENKfDBUjRKSnREYuYL AgICAgICAgICAgICAgICAgICAgICAgICAgICAgICAg LFPpKYQuUVZhFKQoLVXjKIMvFT9DSJCmWIFcWUJwVSFcHDEbTAGrDHQfHCGaFSQvOIChDXEyNLUyHSCk ICAgICAgICAgICAgICAgICAgICAgICAgICAgICAgICAgICAgICAgICAgICAgICAgICAgICAgICAgICAg YB0GNSXzZETzPQIoVKIjZZAaHYVcHVCvVDJlYJLkYG AgICAgICAgICAgICAgICAgICAgICAgICAgICAgICAgICAgICAgICAgICAgICAgICAgICAgICAgICAgIC HeBDNfIEKhZNIdLL2WYYPmEBZaUGAmDYZqONTlJBDsIPPlOJKkJNRqZHSrIEWlHTQlXNCsCQGcGGQsNI AgICAgICAgICAgICAgICAgICAgICAgICAgICAgICAg BUAnBLIpROMlKGTdVPSpFZXsGNUzVL2YDR03qHFlq1H9ZFIvZA8rvck/Ln8EFRiixhPtkALyTA2RAeWt AY5dca5AUtMjXZ7btd3FLFsAIlKdJ3A0iGGaUFFoFGHRSvCcM66oCBfuOl50OLvgSBUsEnDeXBg1Li2T XtYqG3hnNUIlIkU1TKGhGkT2MOFoSlW1MSBxLkWvGO HlRKLbVJ1VBADkM259anUdDN4QIt3UNbPxEO3onq8EKWLhQHCxWnkLPek5ZBacZH8CxEIiX0WboEKad6 lCMiRvD0FNZOCfLLTyOq4BQAEqZaUbNEFfDWcaRG0iDFRqCMRVpAucvgK4UG6ZHP8kapXqDQ1LXtHdUs 0eGj0LNbVnI4VbJ0NwKWPvVEBAUPslAC4EBPYlFTW3 FDQ6BQOhBIZDOtVbR79gQE6BQ4Eaw72vIaN5ZIGiNtLyARpsJC86sSallmWpmZIoaVvoVF6EIv0+DQpl akHjEvxDKppoOZDPWsBcPMJGUeIsTUDiUQQkILRnEyY4XsWsXd8GRPIcHTHvDAPxRxGhOMCrIFAjGUbw ZPOgYDpqPpqjOBFgIJTwKE6JTdVuGKBnIARbLDFnFF IrMUTzsr0PFXPrSKUkJHL0SaEpFWXkOUQhAXzsUGWtVHRlQCV8EWCqMIVcQJ2FLwUiJTJfEAB7JzKeUW XuAJLvgj7AZBGiFPKqYbNpHkYxZOWeWUKhROntJGVvWVP9XPIuPWChOZQmAS4LLsLtOBGgMPj6YUNnDD TjXETmqh3HYEPaFOSdTRh7BeWwTCJxVRIpVQcmGVDs FKNfOPstDLYrEBBjBU5TUfIrBFWuIGTtOsnwDNVuIKFvrj7ZTTOqCPUkLHFsIWDmNZVmUTMtKAtbUNZh AVGqDDS4DPSbCJTdQB8MUdDrWGHuEXH8LOcjAHSyYLRtch5PLRYqWVTmVyS4OaNzVYGiTNVkZWtcYIVb BNNmGwh1MUFjAILpEM9UAdRsOXRmFCM7DamzBNPqBB Ywbj6GJGLgZQZeOfjwSEOxHGLuYWHjOHiqERVgPOL0KYJ2DACqFBYgGV5NFzPsVQChOLTfQYMeYUAnUJ Lwqv5UMPGdFHRhTLQkOxZhEDGaWQYyCYryQYTdPSGeTZVlOOQgFHMlES6LIyEhKFYzMwEsScYePGXmSM Jhdo4LMLQpCMWoVSs6QGKzYQXbMWBwHCcjVCJuAUB9 PGS1ZMHpBCLaNI1IJhInJJMyZmX4RtqaNPCeNICgpa2GPEGpRVDcLPZgQTBhDFEeANAoRIhzVENzKPY5 OSQ0AEEjDPDdIC0SKrXbBRVnFPJ1WSReMTHkSVLylv3MWDQsHUO8BzHnFyJmSATpRAEiPSbuEQKhXCH8 Juq6VFGhSXFuIK9JMbCvJHVsOQK7MyJiUEMsSWHuwx 4FPOOfZFK6NYLzNJTkDQSnTKVjFHmzETAkEWG8UuL2YOHsCYUdLL7WTtTnDLPeXmS4EzWiSJPzDWYznl 3FVCLoOHZ4GGA6FCUkCWGkFXBmBVrbQVLcJQP7Mny0GZBtPMZjYX1RDvLzOUUvNgn5LDpdIBSiAJHpps 7VXWUyJUP6ZBopYZLzSHXhVSFyQTqvTPPzZGh8AyHe ACLdBYLyDL5NZaGkLEChQpjhLGrzKUZoDQAywo2EUOJdKNT9LUL0NHQnZWZwHLVdKWfaZIAtQPcdCANp EZSgZQYxEO6TSrQuONZlUKR4KHbrPJUnYIKfht8WmFSlqNcune5MOMoEHw6ZkEypEQD3TOtcUh9yzFD9 NJYyKWYVGf1ZefRcPEKmVPVEGXzeZHHxYNg8OEHmP6 SjGRC0IeC5JpCiYTRpMGZwTxFqQBHwAQPzTrZ8HaAeW7UsTKRqZMgvChSlCPT2Q8A4NcQfC6QhWtC9BO E+MG3xCRs+Uo0Ns0GphdD6pbHrRHl0CgT8YF3PYCGDM9FROs== ID Date Data Source [id number] 05/27/2020 03:10:00 PM EST MEDENT ([facility], ) Name Value Range Interpretation Code Description Data Eloise rce(s) Supporting Document(s) PDFReport Laboratory test result MEDENT ([facility]) FVC-Pre 4.08 L [facility] ([facility]) FVC-Pred 4.27 L [facility] ([facility]) FVC-%Pred-Pre 95 L [facility] ([facility]) FVC-LLN 3.39 L [facility] ([facility]) Fev1-Pred 3.19 L [facility] ([facility]) Fev1-Pre 3.11 L [facility] ([facility]) Fev1-LLN 2.44 L [facility] ([facility]) Fev1-%Pred-Pre 97 L [facility] ([facility]) Fev6-Pre 4.05 L [facility] ([facility]) Fev6-%Pred-Pre 100 L [facility] ([facility]) Fev6-Pred 4.05 L [facility] ([facility]) Fev6-LLN 3.19 L [facility] ([facility]) Ffh7etq-Rhsq 75 % [facility] ([facility]) Gbb5flu-Uzd 76 % [facility] ([facility]) Paf8wnu-FGL 65 % [facility] ([facility]) Ezd2znn-Dhmc 95 % [facility] ([facility]) Fgm1opp-%Pred-Pre 102 % [facility] ([facility]) Wiz8cwh-Vjy 99 % [facility] ([facility]) Ivy6vzz-%Pred-Pre 104 % [facility] ([facility]) FEFMax-Pre 6.63 L/E/sec [facility] ([facility]) FEFMax-%Pred-Pre 79 L/E/sec [facility] ([facility]) FEFMax-Pred 8.38 L/E/sec [facility] ([facility]) Gai0731-Kllw 2.54 L/E/sec [facility] ([facility]) FEFMax-LLN 6.19 L/E/sec [facility] ([facility]) Enf4843-Ryl 2.61 L/E/sec [facility] ([facility]) ExpTime-Pre 6.46 sec [facility] ([facility]) Ood3332-%Pred-Pre 102 L/E/sec [facility] ([facility]) Exv1906-TFO 1.03 L/E/sec [facility] ([facility]) Uei0xzr9-Qick 78 % [facility] ([facility]) Wxo3tym2-RTJ 69 % [facility] ([facility]) Inq2ebj9-Zht 77 % [facility] ([facility]) Srn4ati1-%Pred-Pre 98 % [facility] ([facility]) ID Date Data Source [id number] 05/07/2020 01:00:00 PM EST [facility] Name Value Range Interpretation Code Description Data Eloise rce(s) Supporting Document(s) [facility] 2 [facility] by [facility] and reported by [facility]. ID Date Data Source [id number] 04/29/2020 12:00:00 AM EST [facility] Name Value Range Interpretation Code Description Data Eloise rce(s) Supporting Document(s) SARS-CoV-2 (COVID-19) RNA [Presence] in Respiratory specimen by [facility] with probe detection Not Detected [facility] This lab was ordered by [facility] and reported by [facility]. Procedure Social History Code Duration Value Status Description Data Source(s ) Smoking 07/22/2020 12:00:00 AM EDT Former Smoker completed Former Smoker eCW1 ([facility]) Smoking 07/22/2020 12:00:00 AM EDT Former Smoker completed Former Smoker eCW1 ([facility]) Smoking 05/27/2020 12:00:00 AM EST Patient has never smoked co mpleted Patient has never smoked [facility] ([facility]) Smoking 01/22/2020 12:00:00 AM EDT Former Smoker completed Former Smoker eCW1 ([facility]) Smoking 01/22/2020 12:00:00 AM EDT Former Smoker completed Former Smoker eCW1 ([facility]) Smoking 01/22/2020 12:00:00 AM EDT Former Smoker completed Former Smoker eCW1 ([facility]) Vital Signs ID Date Data Source UNK Name Value Range Interpretation Code Description Data Source(s) Systolic blood pressure 118 mm[Hg] 118 mm[Hg] [facility] Diastolic blood pressure 60 mm[Hg] 60 mm[Hg] [facility] ([facility]) Heart rate 80 /min 80 /min [facility] ([facility]) Oxygen saturation in Arterial blood by Pulse oximetry 97 % 97 % [facility] ([facility]) Body height 68 [in_i] 68 [in_i] [facility] ([facility]) 5'8" Body weight 174.00 [lb_av] 174.00 [lb_av] [facility] Body mass index (BMI) [Ratio] 26.5 kg/m2 26.5 k g/m2 [facility] ([facility]) [place] body weight 154 [lb_av] 154 [lb_av] [facility] Body weight 78.926 kg 78.926 kg [facility] ([facility]) Body surface area Derived from formula 1.93 m2 1.93 m2 [facility] ([facility]) Body height 68 [in_i] 68 [in_i] [facility] ([facility]) 5'8" Body weight 174.00 [lb_av] 174.00 [lb_av] [facility] ([facility]) Body mass index (BMI) [Ratio] 26.5 kg/m2 26.5 k g/m2 [facility] ([facility]) [place] body weight 154 [lb_av] 154 [lb_av] [facility] ([facility]) Body weight 78.926 kg 78.926 kg [facility] ([facility]) Body surface area Derived from formula 1.93 m2 1.93 m2 [facility] ([facility]) Systolic blood pressure 130 mm[Hg] 130 mm[Hg] [facility] ([facility]) Diastolic blood pressure 80 mm[Hg] 80 mm[Hg] [facility] ([facility]) Body height 68 [in_i] 68 [in_i] [facility] 5'8" Body weight 174.00 [lb_av] 174.00 [lb_av] [facility] ([facility]) Body mass index (BMI) [Ratio] 26.5 kg/m2 26.5 k g/m2 [facility] ([facility]) [place] body weight 154 [lb_av] 154 [lb_av] [facility] ([facility]) Body weight 78.926 kg 78.926 kg [facility] ([facility]) Body surface area Derived from formula 1.93 m2 1.93 m2 [facility] ([facility]) Body height 68 [in_i] 68 [in_i] eCW1 ([facility]) Body weight 171.1 [lb_av] 171.1 [lb_av] eCW1 ([facility]) Diastolic blood pressure 72 mm[Hg] 72 mm[Hg] eCW1 ([facility]) Body mass index (BMI) [Ratio] 26.01 kg/m2 26.01 kg/m2 W1 ([facility]) Heart rate 74 /min 74 /min eCW1 ([facility] Respiratory rate 18 /min 18 /min eCW1 ([facility]) Body temperature 97.7 [degF] 97.7 [degF] eCW1 ( [facility]) Systolic blood pressure 128 mm[Hg] 128 mm[Hg] e CW1 ([facility]) Systolic blood pressure 132 mm[Hg] 132 mm[Hg] [facility] Body mass index (BMI) [Ratio] 25.10 kg/m2 25.10 kg/m2 [facility] Oxygen saturation in Arterial blood by Pulse oximetry 98 % 98 % [facility] Diastolic blood pressure 68 mm[Hg] 68 mm[Hg] [facility] Heart rate 61 /min 61 /min [facility] Body height 175.3 cm 175.3 cm [facility] Body weight 77.111 kg 77.111 kg [facility] Heart rate 92 /min 92 /min [facility] ([facility], ) Diastolic blood pressure 70 mm[Hg] 70 mm[Hg] [facility] ([facility]) Body weight 171.00 [lb_av] 171.00 [lb_av] [facility] ([facility]) Systolic blood pressure 132 mm[Hg] 132 mm[Hg] [facility] Body height 68 [in_i] 68 [in_i] [facility] ([facility]) 5'8" Oxygen saturation in Arterial blood by Pulse oximetry 98 % 98 % [facility] ([facility]) Body mass index (BMI) [Ratio] 26.0 kg/m2 26.0 k g/m2 [facility] ([facility]) Body surface area Derived from formula 1.91 m2 1.91 m2 [facility] ([facility]) Body weight 77.566 kg 77.566 kg [facility] ([facility]) [place] body weight 154 [lb_av] 154 [lb_av] [facility] ([facility]) Oxygen saturation in Arterial blood by Pulse oximetry 98 % 98 % [facility] ([facility]) Body height 68 [in_i] 68 [in_i] [facility] ([facility]) 5'8" Body weight 171.00 [lb_av] 171.00 [lb_av] [facility] ([facility]) Body mass index (BMI) [Ratio] 26.0 kg/m2 26.0 k g/m2 [facility] ([facility]) [place] body weight 154 [lb_av] 154 [lb_av] [facility] Body weight 77.566 kg 77.566 kg [facility] ([facility]) Body surface area Derived from formula 1.91 m2 1.91 m2 [facility] ([facility]) Body weight 177.2 [lb_av] 177.2 [lb_av] eCW1 ([facility]) Body height 68 [in_i] 68 [in_i] eCW1 ([facility]) Body mass index (BMI) [Ratio] 26.94 kg/m2 26.94 kg/m2 eCW1 ([facility]) Heart rate 85 /min 85 /min eCW1 ([facility]) Respiratory rate 18 /min 18 /min W1 ([facility]) Body temperature 96.5 [degF] 96.5 [degF] eCW1 ( [facility]) Systolic blood pressure 146 mm[Hg] 146 mm[Hg] e CW1 ([facility]) Diastolic blood pressure 66 mm[Hg] 66 mm[Hg] eCW1 ([facility]) Patient Treatment Plan of Care Planned Activity Planned Date Details Description Data Source (s) Losartan Potassium 100 MG Oral Tablet 03/27/2020 12:00:00 AM EST [facility] Ascorbic Acid 500 MG Oral Tablet [facility]
--- NOTE | 2021-02-07 10:30 | ROOR ---
Patient Name: Travis Sy Procedure Date: 02/07/2021 10:09 AM Date of : 1955 Age: 66 Room: [facility] Gender: Male Note Status: Finalized Procedure: Colonoscopy Indications: Screening for colorectal malignant neoplasm Providers: Yared Bailon MD Referring MD: Dolly Navarro, [facility] D. [facility], Admin. Requesting Provider: Medicines: Monitored Anesthesia Care Complications: No immediate complications. Procedure: Pre-Anesthesia Assessment: - The heart rate, respiratory rate, oxygen saturations, blood pressure, adequacy of pulmonary ventilation, and response to care were monitored throughout the procedure. The Colonoscope was introduced through the anus and advanced to the terminal ileum, with identification of the appendiceal orifice and IC valve. The colonoscopy was performed without difficulty. The patient tolerated the procedure well. The quality of the bowel preparation was good. Findings: The perianal and digital rectal examinations were normal. Mild sigmoid diverticulosis and small internal hemorrhoids. Two sessile polyps were found in the sigmoid colon and ascending colon. The polyps were 4 to 5 mm in size. These polyps were removed with a cold snare. Resection and retrieval were complete. The exam was otherwise without abnormality on direct and retroflexion views. Impression: - Mild sigmoid diverticulosis and small internal hemorrhoids. - Two 4 to 5 mm polyps in the sigmoid colon and in the ascending colon, removed with a cold snare. Resected and retrieved. - The examination was otherwise normal on direct and retroflexion views. Recommendation: - Repeat colonoscopy in 5 years for surveillance. Procedure Code(s): --- Professional --- 04103, Colonoscopy, flexible; with removal of tumor(s), polyp(s), or other lesion(s) by snare technique Diagnosis Code(s): --- Professional --- K63.5, Polyp of colon Z12.11, Encounter for screening for malignant neoplasm of colon CPT copyright 2019 [employer]. All rights reserved. The codes documented in this report are preliminary and upon pottery kiln builder review may be revised to meet current compliance requirements. Yared Bailon MD Yared Bailon MD 02/07/2021 10:30:17 AM Electronically signed by Yared Bailon MD Number of Addenda: 0 Note Initiated On: 02/07/2021 10:09 AM Estimated Blood Loss: Estimated blood loss: none.
[2021-02-07 10:55] VITALS: BP 122/68
== END 2021-02-07 11:05 | disposition home or self-care (01) ==
LOC: M OPP 09:08
PROVIDERS: ATTEND Internal Medicine Gastroenterology
DX: Z12.11 Encounter for screening for malignant neoplasm of colon (principal); K63.5 Polyp of colon; K57.30 Diverticulosis of large intestine without perforation or abscess without bleeding; K64.8 Other hemorrhoids; I71.4 Abdominal aortic aneurysm, without rupture; Z79.82 Long term (current) use of aspirin; Z79.899 Other long term (current) drug therapy; Z88.8 Allergy status to other drugs, medicaments and biological substances; Z87.442 Personal history of urinary calculi

== ENCOUNTER → 2021-06-13 | Outpatient (CLI) | payer BC ==
[~2021-06-13] MED LIST changes: +LOSA100T45 PO; -LOSA100T50 PO; +LOSA25TA13; -LOSA25TA14; -NS 1,000 ML IV ONE
[2021-06-13 09:35] LABS: HEMATOCRIT 43.8 % (42.0-52.0); HEMOGLOBIN 14.1 g/dl (13.5-17.5); MEAN CORPUSCULAR HEMOGLOBIN 29.4 pg (27.0-33.0); MEAN CORPUSCULAR HGB CONC 32.2 g/dl (32.0-36.5); MEAN CORPUSCULAR VOLUME 91.4 fl (80.0-96.0); PLATELET COUNT, AUTOMATED 214 10^3/uL (150-450); RED BLOOD COUNT 4.79 10^6/uL (4.30-6.10); WHITE BLOOD COUNT 6.6 10^3/uL (4.0-10.0)
[2021-06-13 09:53] LABS: HEMOGLOBIN A1c 5.7 %
[2021-06-13 10:00] LABS: BLOOD UREA NITROGEN 32 MG/DL (7-18); CALCIUM LEVEL 9.7 MG/DL (8.8-10.2); CARBON DIOXIDE LEVEL 29 MEQ/L (21-32); CHLORIDE LEVEL 111 MEQ/L (98-107); CHOLESTEROL LEVEL 154 MG/DL (<200); CHOLESTEROL RISK RATIO 2.109 (<5); CREATININE FOR GFR 1.08 MG/DL (0.70-1.30); GLOMERULAR FILTRATION RATE > 60.0 (>49); GLUCOSE, FASTING 95 MG/DL (70-100); HDL CHOLESTEROL 73 MG/DL (>40); LDL CHOLESTEROL 69 MG/DL (<100); NON-HDL-C 81 MG/DL; POTASSIUM SERUM 4.6 MEQ/L (3.5-5.1); SODIUM LEVEL 144 MEQ/L (136-145); TRIGLYCERIDES LEVEL 59 MG/DL (<150)
== END ==
LOC: M LAB 08:34
PROVIDERS: ATTEND Family Medicine
DX: N40.1 Benign prostatic hyperplasia with lower urinary tract symptoms (principal); R73.03 Prediabetes; I10 Essential (primary) hypertension
CPT/HCPCS: 36415; 80048; 80061; 83036; 85027; G0103

== ENCOUNTER → 2022-05-15 | Outpatient (CLI) | payer BC ==
[~2022-05-15] MED LIST changes: -D31000TA2 PO; +VITA100093 PO
[2022-05-15 14:28] LABS: ALBUMIN 4.2 G/DL (3.2-5.2); ALKALINE PHOSPHATASE 53 U/L (46-116); ALT/SGPT 48 U/L (7.0-40); AST/SGOT 31 U/L (<34); BILIRUBIN,TOTAL 0.8 MG/DL (0.3-1.2); BLOOD UREA NITROGEN 22 MG/DL (9-23); CALCIUM LEVEL 9.6 MG/DL (8.3-10.6); CARBON DIOXIDE LEVEL 28 MMOL/L (20-31); CHLORIDE LEVEL 107 MMOL/L (98-107); CHOLESTEROL LEVEL 143 MG/DL (<200); CHOLESTEROL RISK RATIO 2.36 (<5); CREATININE FOR GFR 0.95 MG/DL (0.70-1.30); GLOMERULAR FILTRATION RATE > 60.0 (>49); GLUCOSE, FASTING 91 MG/DL (74-106); HDL CHOLESTEROL 60.5 MG/DL (>40); LDL CHOLESTEROL 66.1 MG/DL (<100); NON-HDL-C 83 MG/DL; POTASSIUM SERUM 4.6 MMOL/L (3.5-5.1); SODIUM LEVEL 143 MMOL/L (136-145); TOTAL PROTEIN 6.7 G/DL (5.7-8.2); TRIGLYCERIDES LEVEL 82 MG/DL (<150)
[2022-05-15 14:40] LABS: BASO % 0.6 % (0.0-1.0); EOS # 0.1 10^3/uL (0.0-0.5); HEMATOCRIT 44.4 % (42.0-52.0); HEMOGLOBIN 13.9 g/dl (13.5-17.5); LYMPH # 1.8 10^3/uL (1.5-5.0); LYMPH % 25.4 % (24.0-44.0); MEAN CORPUSCULAR HEMOGLOBIN 29.4 pg (27.0-33.0); MEAN CORPUSCULAR HGB CONC 31.3 g/dl (32.0-36.5); MEAN CORPUSCULAR VOLUME 94.1 fl (80.0-96.0); MONO # 0.6 10^3/uL (0.0-0.8); NEUTROPHILS # 4.5 10^3/uL (1.5-8.5); NEUTROPHILS % 63.7 % (36.0-66.0); PLATELET COUNT, AUTOMATED 210 10^3/uL (150-450); RED BLOOD COUNT 4.72 10^6/uL (4.30-6.10); WHITE BLOOD COUNT 7.1 10^3/uL (4.0-10.0)
[2022-05-15 16:18] LABS: HEMOGLOBIN A1c 5.4 % (4.0-6.0)
== END ==
LOC: M PLALAB 09:52
PROVIDERS: ATTEND Physician Assistant
DX: Z12.5 Encounter for screening for malignant neoplasm of prostate (principal); I10 Essential (primary) hypertension
CPT/HCPCS: 36415; 80053; 80061; 83036; 85025; G0103

== ENCOUNTER → 2022-12-11 | Outpatient (CLI) | payer BC ==
[~2022-12-11] MED LIST changes: -LOSA100T45 PO; +LOSA100T46 PO
[2022-12-11 13:45] LABS: BASO # 0.1 10^3/uL (0.0-0.2); EOS # 0.1 10^3/uL (0.0-0.5); EOS % 2.1 % (0.0-3.0); HEMOGLOBIN 13.5 g/dl (13.5-17.5); LYMPH # 1.9 10^3/uL (1.5-5.0); LYMPH % 31.7 % (24.0-44.0); MEAN CORPUSCULAR HEMOGLOBIN 29.7 pg (27.0-33.0); MEAN CORPUSCULAR HGB CONC 32.1 g/dl (32.0-36.5); MEAN CORPUSCULAR VOLUME 92.3 fl (80.0-96.0); MONO # 0.7 10^3/uL (0.0-0.8); MONO % 11.5 % (2.0-8.0); NEUTROPHILS # 3.2 10^3/uL (1.5-8.5); NEUTROPHILS % 53.4 % (36.0-66.0); PLATELET COUNT, AUTOMATED 193 10^3/uL (150-450); RED BLOOD COUNT 4.55 10^6/uL (4.30-6.10); WHITE BLOOD COUNT 6.1 10^3/uL (4.0-10.0)
[2022-12-11 14:05] LABS: HEMOGLOBIN A1c 5.5 % (4.0-6.0)
[2022-12-11 14:10] LABS: TOTAL IRON BINDING CAPACITY 313 UG/DL (250-425)
[2022-12-11 14:11] LABS: ALBUMIN 4.1 G/DL (3.2-5.2); ALKALINE PHOSPHATASE 50 U/L (46-116); ALT/SGPT 39 U/L (7.0-40); AST/SGOT 19 U/L (<34); BILIRUBIN,TOTAL 0.8 MG/DL (0.3-1.2); BLOOD UREA NITROGEN 20 MG/DL (9-23); CALCIUM LEVEL 9.9 MG/DL (8.3-10.6); CARBON DIOXIDE LEVEL 28 MMOL/L (20-31); CHLORIDE LEVEL 104 MMOL/L (98-107); CHOLESTEROL LEVEL 134 MG/DL (<200); CHOLESTEROL RISK RATIO 2.22 (<5); CREATININE FOR GFR 0.96 MG/DL (0.70-1.30); FERRITIN 176.4 NG/ML (10.5-307.3); GLOMERULAR FILTRATION RATE > 60.0 (>49); GLUCOSE, FASTING 96 MG/DL (74-106); HDL CHOLESTEROL 60.3 MG/DL (>40); IRON (FE) 75 UG/DL (65-175); LDL CHOLESTEROL 60.9 MG/DL (<100); NON-HDL-C 73.7 MG/DL; SODIUM LEVEL 140 MMOL/L (136-145); TOTAL PROTEIN 6.9 G/DL (5.7-8.2); TRIGLYCERIDES LEVEL 64 MG/DL (<150); VITAMIN B12 LEVEL 594 PG/ML (211-911)
== END ==
LOC: M PLALAB 09:29
PROVIDERS: ATTEND Physician Assistant
DX: R73.03 Prediabetes (principal); I10 Essential (primary) hypertension; N40.1 Benign prostatic hyperplasia with lower urinary tract symptoms; Z86.2 Personal history of diseases of the blood and blood-forming organs and certain disorders involving the immune mechanism; E78.5 Hyperlipidemia, unspecified
CPT/HCPCS: 36415; 80053; 80061; 82607; 82728; 83036; 83550; 85025; G0103

== ENCOUNTER → 2023-06-15 | Outpatient (CLI) | payer MEDICARE, BC ==
[2023-06-15 14:05] LABS: BASO # 0.1 10^3/uL (0.0-0.2); BASO % 0.6 % (0.0-1.0); EOS # 0.1 10^3/uL (0.0-0.5); EOS % 1.6 % (0.0-3.0); HEMATOCRIT 43.3 % (42.0-52.0); LYMPH # 2.2 10^3/uL (1.5-5.0); LYMPH % 27.2 % (24.0-44.0); MEAN CORPUSCULAR HEMOGLOBIN 30.1 pg (27.0-33.0); MEAN CORPUSCULAR HGB CONC 32.3 g/dl (32.0-36.5); MEAN CORPUSCULAR VOLUME 93.1 fl (80.0-96.0); MONO # 0.8 10^3/uL (0.0-0.8); MONO % 9.9 % (2.0-8.0); NEUTROPHILS # 4.8 10^3/uL (1.5-8.5); NEUTROPHILS % 60.3 % (36.0-66.0); PLATELET COUNT, AUTOMATED 203 10^3/uL (150-450); RED BLOOD COUNT 4.65 10^6/uL (4.30-6.10); WHITE BLOOD COUNT 7.9 10^3/uL (4.0-10.0)
[2023-06-15 14:30] LABS: HEMOGLOBIN A1c 5.6 % (4.0-6.0)
[2023-06-15 14:36] LABS: PSA SCREENING 2.56 NG/ML (< 4.00)
[2023-06-15 14:40] LABS: LIPASE 33 U/L (12-53)
[2023-06-15 14:42] LABS: ALKALINE PHOSPHATASE 49 U/L (46-116); ALT/SGPT 38 U/L (7.0-40); AST/SGOT 21 U/L (<34); BILIRUBIN,TOTAL 0.7 MG/DL (0.3-1.2); BLOOD UREA NITROGEN 20 MG/DL (9-23); CALCIUM LEVEL 9.7 MG/DL (8.3-10.6); CARBON DIOXIDE LEVEL 27 MMOL/L (20-31); CHLORIDE LEVEL 107 MMOL/L (98-107); CREATININE FOR GFR 0.95 MG/DL (0.70-1.30); GLOMERULAR FILTRATION RATE > 60.0 (>49); GLUCOSE, FASTING 77 MG/DL (74-106); POTASSIUM SERUM 4.2 MMOL/L (3.5-5.1); SODIUM LEVEL 139 MMOL/L (136-145); TOTAL PROTEIN 6.8 G/DL (5.7-8.2)
== END ==
LOC: M PLALAB 10:27
PROVIDERS: ATTEND Physician Assistant
DX: R73.03 Prediabetes (principal); N40.1 Benign prostatic hyperplasia with lower urinary tract symptoms; I10 Essential (primary) hypertension; K21.9 Gastro-esophageal reflux disease without esophagitis; Z12.5 Encounter for screening for malignant neoplasm of prostate
CPT/HCPCS: 36415; 80053; 83036; 83690; 85025; G0103

== ENCOUNTER → 2024-12-01 | Outpatient (CLI) | payer MEDICARE, BC ==
[~2024-12-01] MED LIST changes: -ADV250INH; +ADVA1AER9
[2024-12-01 10:05] LABS: PLATELET COUNT, AUTOMATED 194 10^3/uL (150-450)
[2024-12-01 10:21] LABS: ESTIMATED AVERAGE GLUCOSE 114.0 MG/DL (60-110)
[2024-12-01 10:40] LABS: PSA SCREENING 3.67 NG/ML (< 4.00)
[2024-12-01 10:42] LABS: ALT/SGPT 42 U/L (7.0-40); AST/SGOT 28 U/L (<34); CALCIUM LEVEL 9.8 MG/DL (8.3-10.6); CARBON DIOXIDE LEVEL 27 MMOL/L (20-31); CHLORIDE LEVEL 107 MMOL/L (98-107); CHOLESTEROL LEVEL 146 MG/DL (<200); CHOLESTEROL RISK RATIO 2.27 (<5); CREATININE FOR GFR 0.91 MG/DL (0.70-1.30); GLOMERULAR FILTRATION RATE > 90.0 (>49); LDL CHOLESTEROL 66.3 MG/DL (<100); NON-HDL-C 81.9 MG/DL; POTASSIUM SERUM 3.8 MMOL/L (3.5-5.1); SODIUM LEVEL 143 MMOL/L (136-145); TRIGLYCERIDES LEVEL 78 MG/DL (<150)
[2024-12-01 10:44] LABS: FREE T4 1.27 NG/DL (0.89-1.76)
== END ==
LOC: M PLALAB 07:24
DX: I10 Essential (primary) hypertension (principal); Z13.29 Encounter for screening for other suspected endocrine disorder; Z12.5 Encounter for screening for malignant neoplasm of prostate; R73.03 Prediabetes; E78.5 Hyperlipidemia, unspecified
CPT/HCPCS: 36415; 80053; 80061; 83036; 84439; 84443; 85027; G0103

== ENCOUNTER 2024-12-18 00:11 | Emergency (ER) | payer MEDICARE, BC ==
[~2024-12-18] VITALS: Ht 172.7 cm; Wt 73.6 kg
[2024-12-18] MEDS ORDERED: CHLO125TA PO (00:25)
[2024-12-18] MEDS ORDERED: IBUP80TA PO (08:07)
[2024-12-18] MEDS ORDERED: ACET-907 PO (08:07)
[2024-12-18 08:59] VITALS: BP 154/71; TEMP 97.4; O2SAT 99
== END 2024-12-18 10:20 | disposition home or self-care (01) ==
LOC: M ED 00:11
DX: S92.321A Displaced fracture of second metatarsal bone, right foot, initial encounter for closed fracture (principal); S92.334A Nondisplaced fracture of third metatarsal bone, right foot, initial encounter for closed fracture; W18.30XA Fall on same level, unspecified, initial encounter; Y92.9 Unspecified place or not applicable; Y93.9 Activity, unspecified; Y99.9 Unspecified external cause status; Z79.899 Other long term (current) drug therapy
CPT/HCPCS: 73630; 96374; 99284; J3010

== ENCOUNTER 2025-01-28 10:24 | Emergency (ER) | payer MEDICARE, BC ==
[~2025-01-28] VITALS: Ht 172.7 cm; Wt 71.8 kg
[~2025-01-28 10:24] MED LIST changes: +ACET-907 PO; +CHLO125TA PO; +IBUP80TA PO
[2025-01-28 11:51] LABS: BASO # 0.0 10^3/uL (0.0-0.2); BASO % 0.3 % (0.0-1.0); EOS # 0.1 10^3/uL (0.0-0.5); EOS % 0.6 % (0.0-3.0); LYMPH # 1.3 10^3/uL (1.5-5.0); LYMPH % 12.6 % (24.0-44.0); MONO # 1.4 10^3/uL (0.0-0.8); MONO % 13.7 % (2.0-8.0); NEUTROPHILS # 7.3 10^3/uL (1.5-8.5); NEUTROPHILS % 72.4 % (36.0-66.0); PLATELET COUNT, AUTOMATED 229 10^3/uL (150-450)
[2025-01-28 11:54] LABS: KETONE, URINE AUTO RFX NEGATIVE (NEGATIVE); LEUKOCYTE ESTERASE UR AUTO RFX NEGATIVE (NEGATIVE); MUCUS, URINE RFX SMALL (NEGATIVE); NITRITE, URINE AUTO RFX NEGATIVE (NEGATIVE); RBC, URINE AUTO RFX 0 /HPF (0-3); SQUAM EPITHELIAL CELL UR AURFX 0 /HPF (0-6); WBC, URINE AUTO RFX 1 /HPF (0-3)
[2025-01-28 12:24] LABS: ALT/SGPT 33 U/L (7.0-40); AST/SGOT 23 U/L (<34); CALCIUM LEVEL 9.5 MG/DL (8.3-10.6); CARBON DIOXIDE LEVEL 25 MMOL/L (20-31); CHLORIDE LEVEL 101 MMOL/L (98-107); CREATININE FOR GFR 0.89 MG/DL (0.70-1.30); GLOMERULAR FILTRATION RATE > 90.0 (>42); POTASSIUM SERUM 3.7 MMOL/L (3.5-5.1); SODIUM LEVEL 139 MMOL/L (136-145)
[2025-01-28 13:01] VITALS: BP 122/64
[2025-01-28 13:09] VITALS: TEMP 97.3; O2SAT 96
== END 2025-01-28 13:31 | disposition home or self-care (01) ==
LOC: M ED 10:24
DX: M54.50 Low back pain, unspecified (principal); N40.0 Benign prostatic hyperplasia without lower urinary tract symptoms; K21.9 Gastro-esophageal reflux disease without esophagitis; K58.9 Irritable bowel syndrome, unspecified; D64.9 Anemia, unspecified; J45.909 Unspecified asthma, uncomplicated; K57.30 Diverticulosis of large intestine without perforation or abscess without bleeding; Z87.442 Personal history of urinary calculi; Z87.891 Personal history of nicotine dependence; Z79.1 Long term (current) use of non-steroidal anti-inflammatories (NSAID); Z79.02 Long term (current) use of antithrombotics/antiplatelets; Z79.899 Other long term (current) drug therapy

== ENCOUNTER → 2025-02-08 | Outpatient (CLI) | payer MEDICARE, BC ==
[2025-02-08 11:32] LABS: PLATELET COUNT, AUTOMATED 287 10^3/uL (150-450)
[2025-02-08 12:02] LABS: ALT/SGPT 38.0 U/L (7.0-40); AST/SGOT 23.0 U/L (<34); CALCIUM LEVEL 9.8 MG/DL (8.3-10.6); CARBON DIOXIDE LEVEL 27.0 MMOL/L (20-31); CHLORIDE LEVEL 105.0 MMOL/L (98-107); CREATININE FOR GFR 1.12 MG/DL (0.70-1.30); GLOMERULAR FILTRATION RATE 70.7 (>42); POTASSIUM SERUM 4.2 MMOL/L (3.5-5.1); SODIUM LEVEL 143.0 MMOL/L (136-145)
== END ==
LOC: M PLALAB 09:09
DX: N40.1 Benign prostatic hyperplasia with lower urinary tract symptoms (principal); R97.20 Elevated prostate specific antigen [PSA]

== ENCOUNTER → 2025-02-21 | Outpatient (CLI) | payer MEDICARE, BC ==
[~2025-02-21] MED LIST changes: +PROHANCE 279.3MG/ML 15ML VIAL As Ordered ONE
== END ==
LOC: M RAD 16:40
DX: N40.1 Benign prostatic hyperplasia with lower urinary tract symptoms (principal); N13.9 Obstructive and reflux uropathy, unspecified; R29.898 Other symptoms and signs involving the musculoskeletal system; M48.061 Spinal stenosis, lumbar region without neurogenic claudication; M47.814 Spondylosis without myelopathy or radiculopathy, thoracic region
CPT/HCPCS: 72157; 72158; A9576